=== PATIENT | female | born 1950 | race American Indian/Alaskan Native ===

== ENCOUNTER 2020-11-14 12:54 | Outpatient (CLI) | payer MEDICARE ==
--- NOTE | 2020-11-14 16:21 | XRay Report ---
RIGHT HIP HISTORY: Right hip pain. COMPARISON: None. TECHNIQUE: 2 views of the right hip obtained. FINDINGS: Bones: No fracture or dislocation. Joint spaces: Moderate joint space narrowing with associated degenerative change. Soft tissues: No significant abnormality. Additional findings: None. IMPRESSION: Right hip without evidence of acute osseous injury. Moderate joint space narrowing with associated degenerative change. Signer Name: Navdeep Bass MD Signed: 11/14/2020 4:16 PM Workstation Name: [id number]
== END 2020-11-14 12:55 | disposition home or self-care (01) ==
LOC: XRAY 12:54
PROVIDERS: ATTEND Orthopaedic Surgery
DX: M16.11 Unilateral primary osteoarthritis, right hip (principal)